=== PATIENT | female | born 1975 | race Caucasian/White ===

== ENCOUNTER 2018-01-01 10:30 | Inpatient (IN) | payer BC, OTHER ==
[2018-01-01 12:12] VITALS: BMI 31.4
[2018-01-01 12:34] LABS: BASO % 0.5 % (0-2.0); EOS % 0.2 % (0-4.5); HEMATOCRIT 42.2 % (32.4-45.2); HEMOGLOBIN 13.9 GM/dL (10.7-15.3); LYMPH % 17.1 % (8-40); MCH 29.4 pg (25.7-33.7); MCHC 32.9 g/dl (32.0-36.0); MEAN CELL VOLUME 89.5 fl (80-96); MONO % 11.5 % (3.8-10.2); NEUT % 70.7 % (42.8-82.8); RBC 4.72 M/mm3 (3.60-5.2); RDW 13.3 % (11.6-15.6); RETICULOCYTES 1.51 % (0.5-1.5); WHITE BLOOD COUNT 6.9 K/mm3 (4.0-10.0)
[2018-01-01 12:44] LABS: INR 0.87 (0.82-1.09); PROTHROMBIN TIME (PATIENT) 9.8 SEC (9.7-13.0)
[2018-01-01 12:46] LABS: ACTIVATED PTT 28.6 SECONDS (26.9-34.4)
--- NOTE | 2018-01-01 12:48 | HP ---
Past Medical History - Admission Chief Complaint: irregular contractions, mildly elevated BPs upon admission History of Present Illness: 42 y/o female here with SIUP at 39.4 weeks gestation, presented with mild contractions and slight vaginal bleeding. Pt has complicated by thrombocytopenia and AMA. Pt follows with sock examiner - has this issue with all he pregnancies. Is aware may preclude her from getting regional anesthesia and only wants IV pain medication if necessary. Cervix closed upon admission. History Source: Patient, Medical Record Limitations to Obtaining History: No Limitations - Past Medical History Cardiovascular: No: HTN Pulmonary: No: Asthma, COPD Hepatobiliary: No: Hepatitis B, Hepatitis C Renal/: No: UTI Reproductive: No: PID ...: 6 ...Para: 2 ...Term: 2 ...: 0 ...Spon : 3 ...Induced : 0 ...Multiple Gestation: 0 ...EDC by Mina: 01/05/18 Infectious Disease: No: HIV, STD's Psych: No: Bipolar, Depression, Panic Endocrine: No: Diabetes Mellitus - Past Surgical History Past Surgical History: Yes: None Hx Myomectomy: No Hx Transabdominal Cerclage: No - Smoking History Smoking history: Never smoked Have you smoked in the past 12 months: No - Alcohol/Substance Use Hx Alcohol Use: No - Social History Usual Living Arrangement: Yes: With Spouse History of Recent Travel: No Home Medications - Allergies Allergies/Adverse Reactions: Allergies Allergy/AdvReac Type Severity Reaction Status Date / Time No Known Allergies Allergy Verified 01/01/18 10:58 - Home Medications Home Medications: Ambulatory Orders Vit/Iron Fum/Folic AC [ Tablet] 1 tab PO DAILY 01/01/18 Review of Systems - Review of Systems Constitutional: reports: No Symptoms Eyes: reports: No Symptoms HENT: reports: No Symptoms Neck: reports: No Symptoms Cardiovascular: reports: No Symptoms Respiratory: reports: No Symptoms Gastrointestinal: reports: Other (abdominal cramping/contractions) Musculoskeletal: reports: No Symptoms Integumentary: reports: No Symptoms Endocrine: reports: No Symptoms Hematology/Lymphatic: reports: No Symptoms Psychiatric: reports: No Symptoms Physical Exam - Maternity Vital Signs: Vital Signs Temperature 98.6 F 01/01/18 12:03 Pulse Rate 88 01/01/18 12:03 Respiratory Rate 20 01/01/18 12:03 Blood Pressure 132/84 01/01/18 12:03 O2 Sat by Pulse Oximetry (%) Constitutional: Yes: Well Nourished, No Distress, Calm Eyes: Yes: Conjunctiva Clear, EOM Intact HENT: Yes: Atraumatic, Normocephalic Neck: Yes: Trachea Midline Breast(s): Yes: WNL - Abdominal Exam/OB Fundal Height: 39 Number of Fetuses: Single Presentation: Vertex Contractions: Yes Regularity: Irregular Intensity: Mild/Mod Heart Rate (range): 145 Category: I Accelerations: Uniform Decelerations: None - Vaginal Exam/OB Vaginal Bleediing: No Dilatation (cm): 0 Effacement (%): 0 Amniotic Membrane Status: Intact Presentation: Vertex/Position Station: -3 - Physical Exam Psychiatric: Yes: Alert, Oriented Hemorrhage Risk Assessment - Risk Factors Medium Risk Factors: Yes: None High Risk Factors: Yes: None Risk Score: 1 Risk Level: Medium Risk Problem List - Problems (1) Advanced maternal age (AMA), 40 years or greater Code(s): [id number] - (2) Thrombocytopenia affecting Code(s): O99.119 - OTH DIS OF BLD/BLD-FORM ORG/IMMUN MECHNSM COMP PREG,UNSP TRI ; D69.6 - THROMBOCYTOPENIA, UNSPECIFIED Assessment/Plan 42 y/o with SIUP at 39.4 weeks, here with complaints of contractions, known thrombocytopenia and mildly elevated BPS upon admission plan for labor induction cervidil placed f/u 12 hours
[2018-01-01 13:10] LABS: URINE APPEARANCE CLOUDY; URINE BILIRUBIN NEGATIVE (<2.0 mg/dL); URINE COLOR YELLOW; URINE GLUCOSE (UA) NEGATIVE (NEGATIVE); URINE KETONE NEGATIVE (NEGATIVE); URINE LEUK ESTERASE NEGATIVE (NEGATIVE); URINE NITRITE NEGATIVE (NEGATIVE); URINE PROTEIN NEGATIVE (NEGATIVE); URINE UROBILINOGEN NEGATIVE mg/dL (0.2-1.0)
[2018-01-01 13:16] LABS: EPI CELLS MODERATE /HPF (FEW); URINE MUCUS RARE
[2018-01-01 13:38] LABS: MEAN PLT VOLUME 13.8 fl (7.5-11.1); PLATELET COUNT 71 K/MM3 (134-434); PLATELET ESTIMATE DECREASED
[2018-01-01 13:41] LABS: ANION GAP 13 (8-16); BLOOD UREA NITROGEN 9 mg/dL (7-18); CALCIUM 9.6 mg/dL (8.5-10.1); CHLORIDE 107 mmol/L (98-107); CO2 20 mmol/L (21-32); CREATININE 0.5 mg/dL (0.55-1.02); GAMMA GLUTAMYL TRANSPEPTIDASE 13 U/L (5-85); GLUCOSE,RANDOM 79 mg/dL (74-106); POTASSIUM 4.4 mmol/L (3.5-5.1); SGOT/AST 18 U/L (15-37); SGPT/ALT 15 U/L (12-78); SODIUM 140 mmol/L (136-145); URIC ACID 5.9 mg/dL (2.6-7.2)
[2018-01-01] MEDS ORDERED: TUBERCULIN PPD 5 TU/0.1ML SYRINGE (IN PATIENT USE ONLY) ID ONE (20:45)
[2018-01-02] MEDS: DEXTROSE 5%-LACTATED RINGERS 1,000 ML IV SCH ×2 (00:10→12:00)
[2018-01-02] MEDS ORDERED: OXYTOCIN 20 UNITS in 0.9% NS 20 UNIT/1,000 ML INFUS.BAG IV ONE ×2 (03:31→13:49)
[2018-01-02] MEDS ORDERED: PROMETHAZINE HCL 25 MG/1 ML VIAL IVPUSH ONE (05:00)
[2018-01-02] MEDS ORDERED: BUTORPHANOL TARTRATE 1 MG/ML VIAL IVPUSH ONE (05:00)
[2018-01-02] MEDS ORDERED: PROMETHAZINE HCL 25 MG/1 ML VIAL ONE ×2 (05:02→11:57)
[2018-01-02] MEDS ORDERED: BUTORPHANOL TARTRATE 1 MG/ML VIAL ONE ×4 (05:02→11:57)
--- NOTE | 2018-01-02 07:30 | PN ---
Ante-Partal Exam - Subjective Subjective: Pt with contractions overnight, required IV analgesia/narcotics. No LOF/VB. + FM. Feeling well. BPs have been well controlled. Vital Signs: Vital Signs Temperature 97.6 F 01/02/18 06:00 Pulse Rate 96 H 01/02/18 06:00 Respiratory Rate 18 01/02/18 06:00 Blood Pressure 129/83 01/02/18 06:00 O2 Sat by Pulse Oximetry (%) Bleeding: No Headache: No Visual changes: No Right upper quadrant pain: No - Contractions Contractions: Yes Regularity: Regular Intensity: Mild/Mod Monitor Mode: External - Exam during Labor Heart Rate: 125 Variability: Moderate Category: I Monitor Accelerations: Present Monitor Decelerations: None Exam: Vaginal Dilatation (cm): 3 Effacement (%): 50 Amniotic Membrane Status: Intact Presentation: Vertex Station: -4 - Intrapartum Hemorrhage Risk Medium Risk Factors: None High Risk Factors: None Risk Score: 0 Risk Level: Low Risk - Assessment/Plan Assessment/Plan: 42 yo P2 with SIUP at 39+ weeks, admitted with mildly elevated BPs yesterday, is AMA with thrombocytopenia, s/p cervidil - AFVSS - FHTS cat 1 - Mildly elevated BPs upon admission, BPs have been stable/normal since, labs WNL yesterday, lillian symptoms of pre Eclampsia - Thrombocytopenia, Platelets stable over the past 30 days - pt aware she may not be eligible for epidural anesthesia based on platelet levels, desires only IV medication for pain control at this time - if desires epidural will consult anesthesia - GBS negative - cervidil removed overnight, was malika every 1-2 on her own, now contractions have spaced out, cervix ripe, will start pitocin for continued labor induction
[2018-01-02] MEDS ORDERED: OXYTOCIN 30 UNITS in 0.9% NS 30 UNIT/500 ML INFUS.BAG IVPB SCH (09:00)
--- NOTE | 2018-01-02 10:03 | PN ---
Ante-Partal Exam - Subjective Subjective: Pt doing well Pt with 2mu pitocin Vital Signs: Vital Signs Temperature 98.2 F 01/02/18 08:00 Pulse Rate 87 01/02/18 09:00 Respiratory Rate 18 01/02/18 09:00 Blood Pressure 116/63 01/02/18 09:00 O2 Sat by Pulse Oximetry (%) - Exam during Labor Heart Rate: 140 Variability: Moderate Category: I Exam: Vaginal Dilatation (cm): 4 Effacement (%): 70 Amniotic Membrane Status: Ruptured Amniotic Fluid: Clear Presentation: Vertex Station: -3 - Intrapartum Hemorrhage Risk Risk Score: 0 Risk Level: Low Risk - Assessment/Plan Assessment/Plan: arom clear pitocin Plan pitocin augmentation
[2018-01-02] MEDS ORDERED: BUTORPHANOL TARTRATE 1 MG/ML VIAL IVPUSH PRN (11:50)
[2018-01-02] MEDS ORDERED: PROMETHAZINE HCL 25 MG/1 ML VIAL IVPB ONE (11:51)
[2018-01-02] MEDS ORDERED: SODIUM CHLORIDE 100 ML IVPB ONE (11:59)
--- NOTE | 2018-01-02 14:18 | PN ---
Delivery - Delivery Vaginal Delivery: No Problems Type of Anesthesia: None EBL (cc): 300 Delivery, Single - Stages of Labor Placenta: Yes: Spontaneous - Condition of Infant Gender: Male Position: OA - Feeding Plan Initial Plan: Elected not to breastfeed exclusively throughout hospitalization
[2018-01-02] MEDS ORDERED: BENZOCAINE 28 GM HEMORRHOIDAL OINTMENT PR PRN (14:19)
[2018-01-02] MEDS ORDERED: BISACODYL 10 MG SUPP.RECT PR PRN (14:19)
[2018-01-02] MEDS ORDERED: WITCH HAZEL 50% (TUCKS) 40 PAD/JAR PAD TP PRN (14:19)
[2018-01-02] MEDS ORDERED: METHYLERGONOVINE MALEATE 0.2 MG/1 ML AMP IM PRN (14:19)
[2018-01-02] MEDS ORDERED: BENZOCAINE 20% 57 GM BOTTLE TP PRN (14:19)
[2018-01-02 14:57] LABS: ARTERIAL BLD GAS O2 SATURATION 57.5 % (90-98.9); ARTERIAL BLOOD GAS BASE EXCESS -1.1 meq/l (-2-2); ARTERIAL BLOOD GAS PCO2 49.7 mmHg (35-45); ARTERIAL BLOOD GAS PO2 27.3 mmHg (80-100); ARTERIAL BLOOD GAS pH 7.33 (7.35-7.45)
[2018-01-02 15:03] LABS: VENOUS PH 7.37 (7.32-7.42); VENOUS PO2 34.9 mmHg (28-48)
[2018-01-02] MEDS ORDERED: OXYTOCIN 20 UNITS in 0.9% NS 20 UNIT/1,000 ML INFUS.BAG IV SCH (16:00)
[2018-01-02] MEDS: IBUPROFEN 600 MG TABLET (FP) PO PRN (16:31)
[2018-01-02] MEDS: ACETAMINOPHEN 325 MG TABLET (FP) PO PRN (16:32)
[2018-01-03] MEDS: ACETAMINOPHEN 325 MG TABLET (FP) PO PRN (05:38)
[2018-01-03] MEDS: IBUPROFEN 600 MG TABLET (FP) PO PRN (05:39)
[2018-01-03 08:11] LABS: BASO % 0.2 % (0-2.0); EOS % 0.1 % (0-4.5); HEMATOCRIT 38.4 % (32.4-45.2); HEMOGLOBIN 12.5 GM/dL (10.7-15.3); LYMPH % 9.9 % (8-40); MCH 29.2 pg (25.7-33.7); MCHC 32.5 g/dl (32.0-36.0); MEAN CELL VOLUME 90.1 fl (80-96); MEAN PLT VOLUME 14.9 fl (7.5-11.1); MONO % 8.9 % (3.8-10.2); NEUT % 80.9 % (42.8-82.8); PLATELET COUNT 59 K/MM3 (134-434); RBC 4.26 M/mm3 (3.60-5.2); RDW 13.4 % (11.6-15.6)
--- NOTE | 2018-01-03 09:00 | PN ---
Post Progress Note - Subjective Subjective: Pt doing well post . Feels well. Denies pain. Tolerating diet, ambulating, voiding, passing flatus. VB minimal. Type of Delivery: Vital Signs: Vital Signs Temperature 98.8 F 01/03/18 07:20 Pulse Rate 88 01/03/18 07:20 Respiratory Rate 18 01/03/18 07:20 Blood Pressure 121/75 01/03/18 07:20 O2 Sat by Pulse Oximetry (%) Uterus: Yes: Fundus Firm, Non-tender Abdomen/GI: Yes: Abdomen soft, Passing flatus, Tolerating PO. No: Tender Lochia: Yes: Rubra Lochia, amount: Small Extremities: Yes: Calves non-tender. No: Edema Activity: Ambulating - Labs Labs: CBC WBC 13.0 K/mm3 (4.0-10.0) H D 01/03/18 06:50 RBC 4.26 M/mm3 (3.60-5.2) 01/03/18 06:50 Hgb 12.5 GM/dL (10.7-15.3) D 01/03/18 06:50 Hct 38.4 % (32.4-45.2) 01/03/18 06:50 MCV 90.1 fl (80-96) 01/03/18 06:50 MCH 29.2 pg (25.7-33.7) 01/03/18 06:50 MCHC 32.5 g/dl (32.0-36.0) 01/03/18 06:50 RDW 13.4 % (11.6-15.6) 01/03/18 06:50 Plt Count 71 K/MM3 (134-434) L 01/01/18 12:10 MPV 14.9 fl (7.5-11.1) H 01/03/18 06:50 Neutrophils % 80.9 % (42.8-82.8) 01/03/18 06:50 Lymphocytes % 9.9 % (8-40) D 01/03/18 06:50 Monocytes % 8.9 % (3.8-10.2) 01/03/18 06:50 Eosinophils % 0.1 % (0-4.5) 01/03/18 06:50 Basophils % 0.2 % (0-2.0) 01/03/18 06:50 Platelet Estimate Decreased 01/01/18 12:10 Platelet Comment Many large plts 01/01/18 12:10 Retic Count 1.51 % (0.5-1.5) H 01/01/18 12:10 Problem List - Problems (1) Advanced maternal age (AMA), 40 years or greater Code(s): [id number] - (2) Thrombocytopenia affecting Code(s): O99.119 - OTH DIS OF BLD/BLD-FORM ORG/IMMUN MECHNSM COMP PREG,UNSP TRI ; D69.6 - THROMBOCYTOPENIA, UNSPECIFIED (3) Vaginal delivery Code(s): O80 - ENCOUNTER FOR FULL-TERM UNCOMPLICATED DELIVERY Assessment/Plan 42 y/o PPD #1 s/p normal - AFVSS - Hgb 12 - platelets pending, known thrombocytopenia, will consult heme/onc - Dr. Carlos has seen patient in past - regular diet, PO pain meds, encourage ambulation
[2018-01-03] MEDS: PRENATAL VITAMINS W/ FOLIC ACID TABLET (FP) PO SCH (09:13)
[2018-01-03 10:15] LABS: PLATELET ESTIMATE DECREASED
--- NOTE | 2018-01-03 11:23 | CONSULT ---
Consult Consult Specialty:: Hematology - History of Present Illness History of Present Illness: 42 y/o PPD #1 s/p normal vaginal delivery. Heme Hx: As per pt, pt does not follow in our (with ), she has a provider relations advocate at [facility] as per her. From Hx, seems like she has what seems like a gestational-induced thrombocytopenia. Reportedly, she did not receive any treatment and steroids were never administered. Platelets normalized post delivery of the baby as per her. This is her third and she was receiving CBC every two weeks with her physicians. Here in the hospital, platelets were 74K, had an uneventful delivery and now with minimal post bleeding, also with normal coag profile. heme consulted for the low platelet count. Patient seen and examined. She denied any petechiae, abdominal pain, unusual bleeding. - History Source History Provided By: Patient, Medical Record - Past Medical History Cardio/Vascular: No: HTN Pulmonary: No: Asthma, COPD Hepatobiliary: No: Hepatitis B, Hepatitis C Renal/: No: UTI Infectious Disease: No: HIV, STD's Psych: No: Bipolar, Depression, Panic Endocrine: No: Diabetes Mellitus - Past Surgical History Past Surgical History: Yes: None - Alcohol/Substance Use Hx Alcohol Use: No - Smoking History Smoking history: Never smoked Have you smoked in the past 12 months: No - Social History History of Recent Travel: No Home Medications - Allergies Allergies/Adverse Reactions: Allergies Allergy/AdvReac Type Severity Reaction Status Date / Time No Known Allergies Allergy Verified 01/01/18 10:58 - Home Medications Home Medications: Ambulatory Orders Vit/Iron Fum/Folic AC [ Tablet] 1 tab PO DAILY 01/01/18 Ibuprofen [Motrin -] 600 mg PO QID #28 tablet 01/02/18 Physical Exam Vital Signs: Vital Signs Temperature 98.8 F 01/03/18 07:20 Pulse Rate 88 01/03/18 07:20 Respiratory Rate 18 01/03/18 07:20 Blood Pressure 121/75 01/03/18 07:20 O2 Sat by Pulse Oximetry (%) Constitutional: Yes: Well Nourished, No Distress, Calm Eyes: Yes: Conjunctiva Clear HENT: Yes: Atraumatic, Normocephalic Neck: Yes: Supple, Trachea Midline Cardiovascular: Yes: Regular Rate and Rhythm Respiratory: Yes: Regular, CTA Bilaterally Gastrointestinal: Yes: Normal Bowel Sounds, Soft Extremities: Yes: WNL Labs: CBC, BMP 01/03/18 06:50 01/01/18 12:10 Assessment/Plan 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 Saying that, platelets down trended today. Will closely monitor counts. Repeat CBC in the pm and again tomorrow am. If down trending, will favor steroids. coags wnl. Upon d.c, recommend CBC monitoring within one week to ensure appropriate increase. [email or web address] pt/RN
[2018-01-03 16:43] LABS: BASO % 0.3 % (0-2.0); EOS % 0.1 % (0-4.5); HEMATOCRIT 36.7 % (32.4-45.2); HEMOGLOBIN 12.1 GM/dL (10.7-15.3); MCH 29.6 pg (25.7-33.7); MCHC 32.9 g/dl (32.0-36.0); MEAN CELL VOLUME 89.9 fl (80-96); MONO % 8.4 % (3.8-10.2); NEUT % 79.2 % (42.8-82.8); RBC 4.08 M/mm3 (3.60-5.2); RDW 13.4 % (11.6-15.6)
[2018-01-03 18:16] LABS: MEAN PLT VOLUME 13.9 fl (7.5-11.1); PLATELET COUNT 69 K/MM3 (134-434)
[2018-01-03 18:17] LABS: PLATELET ESTIMATE MOD DECREASED
[2018-01-04] MEDS: IBUPROFEN 600 MG TABLET (FP) PO PRN (00:22)
[2018-01-04] MEDS: ACETAMINOPHEN 325 MG TABLET (FP) PO PRN (00:23)
--- NOTE | 2018-01-04 08:23 | PN ---
Post Progress Note Type of Delivery: Vital Signs: Vital Signs Temperature 98.3 F 01/03/18 21:00 Pulse Rate 99 H 01/03/18 21:00 Respiratory Rate 18 01/03/18 21:00 Blood Pressure 125/84 01/03/18 21:00 O2 Sat by Pulse Oximetry (%) Breast Exam: Yes: Soft Uterus: Yes: Fundus Firm Abdomen/GI: Yes: Abdomen soft, Passing flatus Lochia: Yes: Rubra Lochia, amount: Small Extremities: Yes: Calves non-tender Perineum: Yes: Laceration Activity: Ambulating - Labs Labs: CBC WBC 12.0 K/mm3 (4.0-10.0) H 01/03/18 15:30 RBC 4.08 M/mm3 (3.60-5.2) 01/03/18 15:30 Hgb 12.1 GM/dL (10.7-15.3) 01/03/18 15:30 Hct 36.7 % (32.4-45.2) 01/03/18 15:30 MCV 89.9 fl (80-96) 01/03/18 15:30 MCH 29.6 pg (25.7-33.7) 01/03/18 15:30 MCHC 32.9 g/dl (32.0-36.0) 01/03/18 15:30 RDW 13.4 % (11.6-15.6) 01/03/18 15:30 Plt Count 69 K/MM3 (134-434) L 01/03/18 15:30 MPV 13.9 fl (7.5-11.1) H 01/03/18 15:30 Neutrophils % 79.2 % (42.8-82.8) 01/03/18 15:30 Lymphocytes % 12.0 % (8-40) D 01/03/18 15:30 Monocytes % 8.4 % (3.8-10.2) 01/03/18 15:30 Eosinophils % 0.1 % (0-4.5) 01/03/18 15:30 Basophils % 0.3 % (0-2.0) 01/03/18 15:30 Platelet Estimate Mod decreased 01/03/18 15:30 Platelet Comment Cloth Folder Hand 01/03/18 15:30 Retic Count 1.51 % (0.5-1.5) H 01/01/18 12:10 Haptoglobin 125 mg/dL (34-200) 01/01/18 12:10 Other Findings, Remarks: condition stable doing well passing flatus tolorating po well plan to discharge home today f/u in 4 weeks.
[2018-01-04 08:45] LABS: BASO % 0.4 % (0-2.0); EOS % 0.3 % (0-4.5); HEMATOCRIT 37.6 % (32.4-45.2); HEMOGLOBIN 12.3 GM/dL (10.7-15.3); LYMPH % 14.5 % (8-40); MCH 29.4 pg (25.7-33.7); MCHC 32.8 g/dl (32.0-36.0); MEAN CELL VOLUME 89.7 fl (80-96); MEAN PLT VOLUME 12.8 fl (7.5-11.1); MONO % 9.5 % (3.8-10.2); NEUT % 75.3 % (42.8-82.8); RBC 4.19 M/mm3 (3.60-5.2); RDW 13.5 % (11.6-15.6); WHITE BLOOD COUNT 9.6 K/mm3 (4.0-10.0)
[2018-01-04] MEDS: PRENATAL VITAMINS W/ FOLIC ACID TABLET (FP) PO SCH (09:41)
[2018-01-04 10:09] VITALS: BP 138/85; PULSE 90; TEMP 98.4
--- NOTE | 2018-01-04 12:39 | PN ---
Progress Note (short form) - Note Progress Note: Progress Note: Patient seen and examined No complaints No bleeding Vital Signs Period Temp Pulse Resp BP Sys/Cain Pulse Ox Last 24 Hr 98.3 F-98.7 F 90-99 18-20 125-138/77-85 AFVSS HEENT: ZACKERY, EOM Intact Skin: No rashes, no petechiae Integument intact CBC, BMP 01/04/18 08:00 01/01/18 12:10 Current Medications Generic Name Dose Route Start Last Admin Trade Name Freq PRN Reason Stop Dose Admin Acetaminophen 650 mg 01/02/18 14:19 01/04/18 00:23 Tylenol - PO 650 mg Q4H PRN Administration FEVER Benzocaine 1 spray 01/02/18 14:19 Americaine 20% Conger - TP PRN PRN Pain - Topical Benzocaine 1 applic 01/02/18 14:19 Americaine Ointment - RI PRN PRN Pain - Topical Bisacodyl 10 mg 01/02/18 14:19 Dulcolax Suppository - RI PRN PRN CONSTIPATION Dextrose/Lactated Ringer's 1,000 mls @ 125 mls/hr 01/02/18 00:10 01/02/18 12: 00 D5-Lr - IV 125 mls/hr ASDIR [place] Administration Ibuprofen 600 mg 01/02/18 14:19 01/04/18 00:22 Motrin - PO 600 mg Q4H PRN Administration PAIN LEVEL 1 - 3 Methylergonovine Maleate 0.2 mg 01/02/18 14:19 Methergine Injection - IM Q4H PRN EXCESSIVE BLEEDING Multivit/Folic Acid/Iron 1 tab 01/03/18 10:00 01/04/18 09:41 Vitamins (Sjr) - PO 1 tab DAILY [place] Administration Witch Shayy/Glycerin 1 pad 01/02/18 14:19 Tucks Pads - TP PRN PRN Pain - Topical Labs: reviewed A/P 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 Saying that, platelets down trended today. Will closely monitor counts. Repeat CBC a/w platelet counts. If down trending, will favor steroids. will avoid NSAIDS if possible with thrombocytopenia coags wnl. Upon d.c, recommend CBC monitoring within one week to ensure appropriate increase.
[2018-01-04 13:06] LABS: PLATELET COUNT 63 K/MM3 (134-434)
== END 2018-01-04 12:30 | disposition home or self-care (01) | DRG 775 ==
LOC: JDEL 10:30 → JLDR 11:40 → J3W 01-02 15:55
PROVIDERS: ADMIT Obstetrics & Gynecology; ATTEND Obstetrics & Gynecology
PROC: 10E0XZZ Delivery of Products of Conception, External Approach (ICD-10-PCS; principal; 2018-01-02)
DX: O99.12 Other diseases of the blood and blood-forming organs and certain disorders involving the immune mechanism complicating childbirth (principal); Z37.0 Single live birth; D69.6 Thrombocytopenia, unspecified; Z3A.39 39 weeks gestation of pregnancy
CPT/HCPCS: 36415; 36600; 59409; 71046-TC-FY; 80048; 81003; 81015; 82803; 82977; 83010; 84450; 84460; 84550; 85025; 85044; 85610; 85730; 86593; 86850; 86900; 86901

== ENCOUNTER 2018-03-19 05:30 | Day surgery (SDC) | payer BC, OTHER ==
[2018-03-17 17:27] VITALS: BMI 27.1
[2018-03-19] MEDS ORDERED: ONDANSETRON 4 MG/2 ML VIAL IVPUSH PRN (09:56)
[2018-03-19] MEDS ORDERED: LACTATED RINGERS SOLUTION 1,000 ML IV SCH (10:00)
[2018-03-19] MEDS ORDERED: ACETAMINOPHEN 325 MG TABLET (FP) PO PRN (10:59)
[2018-03-19] MEDS ORDERED: IBUPROFEN 600 MG TABLET (FP) PO PRN (10:59)
--- NOTE | 2018-03-19 10:59 | HP ---
History & Physical Update - History History: No Change - Physical Physical: No Change - Assessment Assessment: No Change - Plan Plan: No Change (Agree with H&P from 03/12/18 - for voluntary sterilization/ bilateral salpingectomy)
[2018-03-19] MEDS ORDERED: BUPIVACAINE HCL/PF 0.5% (5MG/ML) 10 ML VIAL ONE (11:22)
[2018-03-19] MEDS ORDERED: MIDAZOLAM HCL 2 MG/2 ML SINGLE DOSE VIAL ONE (11:35)
[2018-03-19] MEDS ORDERED: PROPOFOL 20 ML ONE (11:36)
[2018-03-19] MEDS ORDERED: SUCCINYLCHOLINE CHLORIDE 200 MG/10 ML VIAL ONE (11:37)
[2018-03-19] MEDS ORDERED: LIDOCAINE HCL/PF 2% SDV 5ML VIAL ONE (11:37)
[2018-03-19] MEDS ORDERED: ROCURONIUM BROMIDE 50 MG/5 ML VIAL ONE (11:53)
--- NOTE | 2018-03-19 12:19 | OP ---
Operative Note - Note: Operative Date: 03/19/18 ([id number]) Pre-Operative Diagnosis: desire for permanent sterilization Operation: laparoscopic bilateral salpingectomy Findings: normal b/l tubes and ovaries Post-Operative Diagnosis: Same as Pre-op Surgeon: Criselda Ruiz Critical Care Paramedic: Elsa Acosta Anesthesiologist/RECEIVING WORKER: [place] Julian Anesthesia: General Specimens Removed: bilateral fallopian tubes Estimated Blood Loss (mls): 10 Operative Report Dictated: Yes
--- NOTE | 2018-03-19 13:28 | OP ---
DATE OF OPERATION: 03/19/2018 PREOPERATIVE DIAGNOSIS: Voluntary sterilization, multiparity. POSTOPERATIVE DIAGNOSIS: Voluntary sterilization, multiparity. PROCEDURE: Laparoscopic bilateral salpingectomy. SURGEON: Criselda Ruiz MD SWITCH ADJUSTER: HELEN Lynne ESTIMATED BLOOD LOSS: 10 mL. SPECIMENS REMOVED: Include bilateral fallopian tubes. ANESTHESIA: General by Javi . COMPLICATIONS: None. COUNTS: Sponge, needle, and instrument counts were correct. DISPOSITION: Stable to PACU. BRIEF HISTORY AND PROCEDURE: Patient is a 43-year-old female who was in the office who elected to undergo a voluntary sterilization procedure and signed consents for a laparoscopic bilateral salpingectomy. She was brought into the hospital on March 19, 2018, and taken back to the operating room and given general anesthesia, placed in the dorsal lithotomy position. A Low catheter was placed under sterile conditions, and she was prepped and draped in the usual standard fashion. A hard time-out was performed. A 5-mm skin incision was created in the umbilicus, and a Veress needle was placed into the abdominal cavity. After the hanging drop test was completed, the abdomen was insufflated. Next, a 5-mm trocar was inserted into umbilical incision, and then, a camera was inserted. After a confirmation of intraabdominal placement, 2 bilateral lower quadrant 5-mm ports were placed under direct visualization. Both bilateral fallopian tubes were identified and traced to their fimbriated ends. The left one was identified, elevated, and dissected off its attachment to the ovary, mesosalpinx and to the uterus and removed from the trocar. The same was repeated on the right fallopian tube. Excellent hemostasis was achieved after procedure. All instruments were removed from the abdominal cavity. Trocars were removed after abdomen was desufflated. The counts were reported to be correct. Patient tolerated the procedure well and was recovering in stable condition in the PACU at the time of this dictation. CRISELDA RUIZ DO /[id number]
[2018-03-19 14:03] VITALS: TEMP 98
[2018-03-19] MEDS ORDERED: IBUPROFEN 600 MG TABLET (FP) PO ONE (14:15)
[2018-03-19 15:06] VITALS: BP 134/88; PULSE 78
--- NOTE | 2018-03-19 15:44 | SURG ---
Surgery Window Cutter Note Window Cutter: Elsa Acosta PA-C Date of Service: 03/19/18 Diagnosis: desire for permanent sterilization Procedure: laparoscopic bilateral salpingectomy I was present for the entirety of the operative procedure. For further detail, please refer to operative report. Visit type - Case Type Case Type: Scheduled - Emergency Emergency Visit: No - New patient This patient is new to me today: Yes Date on this admission: 03/19/18
--- NOTE | 2018-03-20 15:38 | PATH ---
Surgical Pathology Report Patient Name: MARIAA GEE [facility]. Rec. #: [id number] /Age/Gender: 1975 (Age: 43) / F Account: [id number] Location: [facility] SURGICAL Taken: 03/19/2018 Received: 03/19/2018 Reported: 03/20/2018 Physicians: Criselda Ruiz M.D. Specimen(s) Received RIGHT AND LEFT FALLOPIAN TUBE Clinical History Multiparity Final Diagnosis FALLOPIAN TUBE, RIGHT AND LEFT, SALPINGECTOMY: FULL LUMINAL PORTIONS OF UNREMARKABLE FALLOPIAN TUBES (2). Electronically Signed Mariaa Thomas M.D. Gross Description Received in formalin labeled "left and right fallopian tube," are 2 undesignated portions of fimbriated fallopian tube averaging 6 cm in length. The outer surfaces are villalta purple and smooth. Sectioning reveals unremarkable lumen. No sales representative cash registers sections are submitted in 4 cassettes as follows: 1-arbitrarily designated fallopian tube A fimbria; 2-cross sections of fallopian tube A; 3-arbitrarily designated fallopian tube B fimbria; 4-cross sections of fallopian tube B. /03/19/2018 saudi03/19/2018
== END 2018-03-19 15:05 | disposition home or self-care (01) ==
LOC: JASU-SURG 05:30
PROVIDERS: ATTEND Obstetrics & Gynecology
PROC: 0U574ZZ Destruction of Bilateral Fallopian Tubes, Percutaneous Endoscopic Approach (ICD-10-PCS; principal; 2018-03-19 12:30)
DX: Z30.2 Encounter for sterilization (principal)
CPT/HCPCS: 84703; 86850; 86900; 86901; 88302-TC; 94760